=== PATIENT | male | born 1930 | race Hispanic/Latino ===

== ENCOUNTER 2017-10-28 20:45 | Observation (INO) | payer MEDICARE, OTHER ==
[2017-10-28 21:12] LABS: #Basophils 0.1 thou/uL (0.0-0.2); #Eosinphils 0.2 thou/uL (0.0-0.7); #Lymphocytes 2.9 thou/uL (1.20-3.40); #Neutrophils 4.5 thou/uL (1.40-6.50); %Basophils 0.7 % (0.0-1.0); %Eosinophils 2.4 % (0.0-10.0); %Monocytes 11.7 % (0.0-10.0); %Neutrophils 52.2 % (42.0-75.0); Hemoglobin 13.5 g/dL (14.0-18.0); Mean Corpuscular HGB CONC 33.8 g/dL (32.0-36.0); Mean Corpuscular Hemoglobin 33.1 pg (27.0-31.0); Mean Corpuscular Volume 98.1 fl (80.0-94.0); Mean Platelet Volume 9.2 fL (7.4-10.4); Platelet Count 198 thou/uL (130-400); RBC Distribution Width 11.1 % (11.5-14.5); Red Blood Cell (RBC) Count 4.09 mill/uL (4.70-6.10); White Blood Cell (WBC) Count 8.7 thou/uL (4.8-10.8)
[2017-10-28 21:39] LABS: ALT (SGPT) 16 U/L (8-55); AST (SGOT) 16 U/L (5-34); Albumin 4.2 g/dL (3.4-4.8); Alkaline Phosphatase 119 U/L (40-150); Anion Gap 13 mmol/L (10-20); BUN (Urea Nitrogen) 24 mg/dL (8.4-25.7); Bilirubin, Total 0.2 mg/dL (0.2-1.2); Calc. Creatinine Clearance 0 mL/min (70-130); Calcium 9.8 mg/dL (7.8-10.44); Carbon Dioxide 26 mmol/L (23-31); Chloride 102 mmol/L (98-107); Estimated GFR-MDRD 60; Globulin 3.7 g/dL (2.4-3.5); Glucose 188 mg/dL (83-110); Potassium 4.2 mmol/L (3.5-5.1); Protein, Total 7.9 g/dL (5.8-8.1); Sodium 137 mmol/L (136-145)
[2017-10-28 21:43] LABS: CKMB 1.5 ng/mL (0-6.6); Troponin I Less than 0.010 ng/mL (< 0.028)
--- NOTE | 2017-10-28 21:43 | RAD ---
CHEST TWO VIEWS: 10/28/17 HISTORY: Chest pain. COMPARISON: 07/21/17 study. Heart size is upper limits of normal. Postop sternotomy change. The lungs are clear of any infiltrati ve process. IMPRESSION: Stable chest. No active intrathoracic disease. POS: [facility]
[2017-10-29 01:03] LABS: Troponin I Less than 0.010 ng/mL (< 0.028)
[2017-10-29] MEDS ORDERED: Ondansetron ODT 4 MG TAB SL PRN (01:34)
[2017-10-29] MEDS ORDERED: Acetaminophen 325 MG TAB PO PRN ×2 (01:34→07:23)
[2017-10-29] MEDS ORDERED: Ondansetron HCl/PF 4 MG/2 ML Vial IVP PRN (01:34)
[2017-10-29 01:51] VITALS: BMI 25.7
[2017-10-29 05:10] LABS: Troponin I Less than 0.010 ng/mL (< 0.028)
[2017-10-29] MEDS ORDERED: Dextrose 50% Abboject 50 ML SYRINGE SLOW IVP PRN ×2 (07:23→07:24)
[2017-10-29] MEDS ORDERED: Nitroglycerin 0.4 MG TAB (25 Tab Bottle) PO PRN (07:23)
[2017-10-29] MEDS ORDERED: Ondansetron ODT 4 MG TAB PO PRN (07:23)
[2017-10-29] MEDS ORDERED: Dextrose 5% in Water 1,000 ML IV PRN ×2 (07:23→07:24)
[2017-10-29] MEDS ORDERED: HumaLOG 300 UNITS/3 ML VIAL SC PRN (07:24)
--- NOTE | 2017-10-29 07:52 | HP ---
PRIMARY CARE PROVIDER: Listed as Dr. Sam Nash. He cannot remember the name of the doctor, bu james that is what is listed. Referred to [facility] Service by [facility]. HISTORY OF PRESENT ILLNESS: The patient states his blood pressure got high about 159. He felt a pre ssure in his chest, lasted about 2 hours, no radiation, no associated symptoms of sweats, shortness o f breath or nausea. He presented to the emergency room and was admitted. PAST MEDICAL HISTORY: Coronary artery disease, diabetes mellitus type 2, hypertension. PAST SURGICAL HISTORY: Coronary artery bypass graft about 4 years ago, cholecystectomy. ALLERGIES: ACETAMINOPHEN, AMOXICILLIN, HYDROCODONE, NAPROXEN. SOCIAL HISTORY: No tobacco or alcohol. CODE STATUS: FULL CODE status. at bedside, next of kin and surrogate decision maker. 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 FAMILY HISTORY: No coronary artery disease, diabetes or hypertension. CURRENT MEDICATIONS: Metformin 500 mg a day, lisinopril 5 mg a day, Lipitor 10 mg a day, aspirin 325 mg a day. REVIEW OF SYSTEMS: General: No headaches, dizziness or fainting. Eyes: No double vision, blurred vision, flashing lights. ENT: No ear pain or drainage. No nasal bleeding. No trouble swallowing. Cardiac: No orthopnea or paroxysmal nocturnal dyspnea. Respirations: No cough, wheezing or asthma . Gastrointestinal: No nausea, vomiting, diarrhea, constipation, abdominal pain, or melena. Genito urinary: No hematuria, dysuria. Musculoskeletal: No pain or swelling in his arms or legs. Neurolo gic: No strokes, seizures or focal weakness. Psychiatric: No anxiety, depression. Skin: No bruis es, bleeding or rash. Heme/Lymph: No tender or swollen lymph nodes under his arms, neck or his groi n. No petechial hemorrhages have been noted. No bleeding gums. PHYSICAL EXAMINATION: GENERAL: He is an alert, pleasant, cooperative gentleman. VITAL SIGNS: Blood pressure 143/72-179/88, pulse 65-80, respirations 14-16, afebrile, O2 sat 95-98 o n room air. HEENT: Reveal pupils equal, round, and reactive to light. Extraocular movements are intact. Sclera e white. Tympanic membranes clear. Nose is clear. Oral mucous membranes are wet. Dental hygiene i s good. NECK: Supple, without jugular venous distention, adenopathy or thyromegaly. CHEST: Clear to auscultation and percussion. HEART: Regular rate and rhythm. First and second heart sounds clear. No murmurs, no gallops. ABDOMEN: Soft, bowel sounds are normal. No hepatosplenomegaly, no mass, no rebound, no bruits. EXTREMITIES: Reveal no cyanosis, clubbing or edema. PULSES: Carotid, radial, femoral, and dorsalis pedis pulses, brisk symmetric. SKIN: Warm and dry without bruises or rash. HEME/LYMPH: No tender or swollen lymph nodes in axilla, inguinal or cervical area. No petechial caroline h. NEUROLOGICAL: Cranial nerves II through XII are intact. Moves all extremities. Sensation is intact . LABORATORY DATA AND X-RAY FINDINGS: Comp metabolic profile normal. Cardiac enzymes normal x3. Bloo d sugar 188, 114. CBC: Hemoglobin 13.5, white count 8.7, platelet count 198,000. Chest x-ray revie wed by me, no cardiomegaly, CHF or infiltrate, post-sternotomy changes. EKG: Regular sinus rhythm, right bundle branch block, reviewed by me. ADMITTING PROBLEMS: 1. Chest pain, tightness sensation consistent with angina. 2. Coronary artery disease, post coronary artery bypass graft. 3. Hypertension. 4. Diabetes mellitus type 2 on oral hypoglycemic medicines. PLAN: 1. Hold metformin. 2. Exercise Cardiolite stress test. 3. Monitor blood pressure and Accu-Cheks. 4. Reevaluate when stress test, etc. is available.
[2017-10-29] MEDS ORDERED: Aspirin 325 MG TAB PO SCH (09:00)
[2017-10-29] MEDS ORDERED: Atorvastatin Calcium 10 MG TAB PO SCH (09:00)
[2017-10-29] MEDS ORDERED: Lisinopril 5 MG TAB PO SCH (09:00)
[2017-10-29] MEDS ORDERED: Aspirin 325 mg Enteric Coated Tablet PO SCH (09:00)
[2017-10-29 15:44] VITALS: BP 142/75; TEMP 97.8
--- NOTE | 2017-10-29 15:48 | NM ---
CARDIAC SPECT: HISTORY: An 87-year-old male with chest pain. Hypertension. Coronary artery disease. Diabetes. CABG. TECHNIQUE: A myocardial perfusion scan was performed using the single isotope one-day protocol with technetium 9 9m sestamibi, and 9 millicuries was injected intravenously for the rest exam, followed by 30 millicur ies for the stress study. Exercise stress was monitored and interpreted by Dr. Mandujano. FINDINGS: Homogeneous tracer distribution is seen in the myocardial segments on stress and rest images without fixed or reversible defects. GATED SPECT LVEF: 70% WALL MOTION EXAM: Normal. IMPRESSION: Normal myocardial perfusion scan. POS: [facility]
--- NOTE | 2017-10-29 17:29 | DIS ---
DATE OF ADMISSION: 10/29/2017 DATE OF DISCHARGE: 10/29/2017 DISCHARGE DISPOSITION: Discharged home. PRIMARY CARE PROVIDER: Sam Nash D.O. FINAL DIAGNOSES: Chest pain, noncardiac; coronary artery disease; hypertension, diabetes mellitus ty pe 2. DISCHARGE MEDICATIONS: Metformin 500 mg a day, lisinopril 5 mg a day, Lipitor 10 mg a day, aspirin 3 25 mg a day. ALLERGIES: AMOXICILLIN, HYDROCODONE, NAPROSYN. CODE STATUS: FULL. PENDING AT THE TIME OF DISCHARGE: Nothing. HOSPITAL COURSE: The patient admitted to the hospital through [place] [facility] statin g his blood pressure got high, he felt some tightness in his chest. His chest x-ray was unrevealing for pneumonia, CHF, etc. EKG was unrevealing for acute abnormality. White count 8.7, hemoglobin 13. 5, platelet count 198,000. Cardiac enzymes normal x3. Comp metabolic profile normal except for bloo d sugar of 188. The patient underwent an exercise Cardiolite stress test which is normal. The patie nt currently feels well. The cardiorespiratory exam is normal. Vital signs were controlled, blood p ressure 142/75, pulse 79, respirations 16, O2 sat 96 on room air. The situation has been discussed w ith him. He is being discharged to follow up with Dr. Nash in 7 days. CONSULTATIONS: None. PROCEDURES: None.
--- NOTE | 2017-10-31 13:27 | EKG ---
Test Reason : CHEST PAIN Blood Pressure : / mmHG Vent. Rate : 074 BPM Atrial Rate : 074 BPM P-R Int : 162 ms QRS Dur : 138 ms QT Int : 408 ms P-R-T Axes : 034 -24 024 degrees QTc Int : 452 ms Normal sinus rhythm Right bundle branch block Abnormal ECG Confirmed by AMY CHEEMA ([id number]), editor newspaper JURGEN BEAVER ([id number]) on 10/31/2017 1:27:30 PM Referred By: Confirmed By:AMY CHEEMA
== END 2017-10-29 17:10 | disposition home or self-care (01) ==
LOC: ERS 20:45 → 2SW 10-29 00:15
PROVIDERS: ADMIT Family Medicine; ATTEND Family Medicine
DX: R07.89 Other chest pain (principal); I25.10 Atherosclerotic heart disease of native coronary artery without angina pectoris; I10 Essential (primary) hypertension; E11.9 Type 2 diabetes mellitus without complications; Z88.1 Allergy status to other antibiotic agents; Z88.6 Allergy status to analgesic agent; Z88.5 Allergy status to narcotic agent; Z88.8 Allergy status to other drugs, medicaments and biological substances; Z79.82 Long term (current) use of aspirin; Z79.84 Long term (current) use of oral hypoglycemic drugs; Z79.899 Other long term (current) drug therapy; Z95.1 Presence of aortocoronary bypass graft
CPT/HCPCS: 71020; 78452; 80053; 82553; 82962; 84484 ×3; 85025; 93005; 93017; 99285; A9500; G0378; 36415; 36416

== ENCOUNTER 2018-02-05 12:13 | Emergency (ER) | payer MEDICARE, OTHER ==
[2018-02-05 12:35] LABS: #Eosinphils 0.2 thou/uL (0.0-0.7); #Lymphocytes 2.3 thou/uL (1.20-3.40); #Monocytes 0.9 thou/uL (0.11-0.59); %Basophils 0.1 % (0.0-1.0); %Eosinophils 1.9 % (0.0-10.0); %Lymphocytes 22.1 % (21.0-51.0); %Monocytes 8.7 % (0.0-10.0); %Neutrophils 67.2 % (42.0-75.0); Hemoglobin 12.4 g/dL (14.0-18.0); Mean Corpuscular HGB CONC 34.6 g/dL (32.0-36.0); Mean Corpuscular Volume 95.5 fl (80.0-94.0); Mean Platelet Volume 8.7 fL (7.4-10.4); Platelet Count 187 thou/uL (130-400); RBC Distribution Width 11.3 % (11.5-14.5); Red Blood Cell (RBC) Count 3.75 mill/uL (4.70-6.10); White Blood Cell (WBC) Count 10.4 thou/uL (4.8-10.8)
[2018-02-05 12:56] LABS: ALT (SGPT) 14 U/L (8-55); AST (SGOT) 13 U/L (5-34); Albumin 3.9 g/dL (3.4-4.8); Alkaline Phosphatase 122 U/L (40-150); Anion Gap 14 mmol/L (10-20); BUN (Urea Nitrogen) 20 mg/dL (8.4-25.7); Bilirubin, Total 0.4 mg/dL (0.2-1.2); CK (CPK) 74 U/L (30-200); Calc. Creatinine Clearance 0 mL/min (70-130); Calcium 9.4 mg/dL (7.8-10.44); Carbon Dioxide 24 mmol/L (23-31); Chloride 104 mmol/L (98-107); Estimated GFR-MDRD 71; Globulin 2.8 g/dL (2.4-3.5); Glucose 182 mg/dL (83-110); Potassium 4.6 mmol/L (3.5-5.1); Protein, Total 6.7 g/dL (5.8-8.1); Sodium 137 mmol/L (136-145)
[2018-02-05 13:00] LABS: CKMB 1.5 ng/mL (0-6.6); Troponin I Less than 0.010 ng/mL (< 0.028)
--- NOTE | 2018-02-05 13:03 | RAD ---
CHEST PA AND LATERAL: Date: 02/05/18 HISTORY: 87-year-old male with history of chest pain, primarily left-sided. COMPARISON: 10/28/17. FINDINGS: Postop midline sternotomy. Mild stable chronic linear and interstitial changes. No confluent pneumoni a, overt edema, or pleural effusion. IMPRESSION: Stable minimal bilateral chronic changes. No acute intrathoracic disease. POS: [facility]
== END 2018-02-05 13:55 | disposition home or self-care (01) ==
LOC: ERS 12:13
DX: S29.011A Strain of muscle and tendon of front wall of thorax, initial encounter (principal); I10 Essential (primary) hypertension; I25.10 Atherosclerotic heart disease of native coronary artery without angina pectoris; E11.9 Type 2 diabetes mellitus without complications; Z87.891 Personal history of nicotine dependence; Z79.899 Other long term (current) drug therapy; Z79.84 Long term (current) use of oral hypoglycemic drugs; Z79.82 Long term (current) use of aspirin; X50.0XXA Overexertion from strenuous movement or load, initial encounter
CPT/HCPCS: 36415; 71046; 80053; 82553; 84484; 85025; 93005; 94760

== ENCOUNTER 2018-03-05 07:03 | Emergency (ER) | payer MEDICARE, OTHER ==
[2018-03-05] MEDS ORDERED: Dexamethasone 10 MG/ML VIAL ONE (07:44)
--- NOTE | 2018-03-05 08:43 | RAD ---
PA AND LATERAL VIEWS CHEST: HISTORY: Cough. COMPARISON: Comparison is made with the exam of 02/05/18. FINDINGS: Postop changes of median sternotomy are again seen. The heart size is normal. Chronic changes are r edemonstrated in the lung perez. No lobar consolidation, pneumothoraces, or pleural effusions are i dentified. There are degenerative changes in the spine. IMPRESSION: No acute process. POS: [facility]
== END 2018-03-05 08:38 | disposition home or self-care (01) ==
LOC: ERS 07:03
DX: J06.9 Acute upper respiratory infection, unspecified (principal); I10 Essential (primary) hypertension; E11.9 Type 2 diabetes mellitus without complications; I25.10 Atherosclerotic heart disease of native coronary artery without angina pectoris; E78.00 Pure hypercholesterolemia, unspecified; Z87.891 Personal history of nicotine dependence; Z79.82 Long term (current) use of aspirin; Z79.84 Long term (current) use of oral hypoglycemic drugs; Z79.899 Other long term (current) drug therapy
CPT/HCPCS: 71046; 87804; 96372; J1100

== ENCOUNTER 2018-03-14 14:23 | Emergency (ER) | payer MEDICARE, OTHER ==
[2018-03-14] MEDS ORDERED: methylPREDNISolone Sod Succ/PF 125 MG/2 ML VIAL ONE (15:16)
--- NOTE | 2018-03-14 16:36 | RAD ---
PA AND LATERAL CHEST: Date: 03/14/18 HISTORY: Cough and congestion for several weeks. COMPARISON: 03/05/18. FINDINGS: Postsurgical changes related to CABG are again noted. The cardiac silhouette is at the upper limits o f normal but stable in size. Pulmonary vasculature is within normal limits. Mild linear densities are again seen at each lung base, probably related to superimposition of structures and vasculature. Deisy gs are otherwise clear. Degenerative changes seen in the spine. Surgical clips overlie the right uppe r quadrant. IMPRESSION: No acute cardiopulmonary process. POS: [facility]
== END 2018-03-14 15:51 | disposition home or self-care (01) ==
LOC: ERS 14:23
DX: J40 Bronchitis, not specified as acute or chronic (principal); E11.9 Type 2 diabetes mellitus without complications; I10 Essential (primary) hypertension; I25.10 Atherosclerotic heart disease of native coronary artery without angina pectoris; Z87.891 Personal history of nicotine dependence
CPT/HCPCS: 71046; 96372; J2930

== ENCOUNTER 2018-03-21 11:21 | Emergency (ER) | payer MEDICARE, OTHER ==
[2018-03-21 12:21] LABS: #Basophils 0.1 thou/uL (0.0-0.2); #Eosinphils 0.3 thou/uL (0.0-0.7); #Lymphocytes 3.2 thou/uL (1.20-3.40); #Monocytes 0.9 thou/uL (0.11-0.59); #Neutrophils 7.7 thou/uL (1.40-6.50); %Basophils 0.8 % (0.0-1.0); %Eosinophils 2.3 % (0.0-10.0); %Lymphocytes 26.1 % (21.0-51.0); %Monocytes 7.6 % (0.0-10.0); %Neutrophils 63.3 % (42.0-75.0); Hemoglobin 13.3 g/dL (14.0-18.0); Mean Corpuscular HGB CONC 34.6 g/dL (32.0-36.0); Mean Corpuscular Volume 95.5 fl (80.0-94.0); Mean Platelet Volume 8.4 fL (7.4-10.4); Platelet Count 254 thou/uL (130-400); RBC Distribution Width 11.3 % (11.5-14.5); Red Blood Cell (RBC) Count 4.03 mill/uL (4.70-6.10); White Blood Cell (WBC) Count 12.2 thou/uL (4.8-10.8)
[2018-03-21 12:40] LABS: ALT (SGPT) 15 U/L (8-55); AST (SGOT) 12 U/L (5-34); Albumin 3.7 g/dL (3.4-4.8); Alkaline Phosphatase 85 U/L (40-150); Anion Gap 9 mmol/L (10-20); BUN (Urea Nitrogen) 34 mg/dL (8.4-25.7); Bilirubin, Total 0.6 mg/dL (0.2-1.2); CK (CPK) 35 U/L (30-200); Calc. Creatinine Clearance 0 mL/min (70-130); Calcium 9.5 mg/dL (7.8-10.44); Carbon Dioxide 26 mmol/L (23-31); Chloride 103 mmol/L (98-107); Estimated GFR-MDRD 67; Globulin 2.9 g/dL (2.4-3.5); Glucose 215 mg/dL (83-110); Potassium 4.4 mmol/L (3.5-5.1); Protein, Total 6.6 g/dL (5.8-8.1); Sodium 134 mmol/L (136-145)
[2018-03-21 12:45] LABS: CKMB 1.1 ng/mL (0-6.6); Troponin I Less than 0.010 ng/mL (< 0.028)
--- NOTE | 2018-03-21 13:10 | RAD ---
PORTABLE CHEST: Date: 03/21/18 HISTORY: Shortness of breath. COMPARISON: 01/13/16 study. FINDINGS: Heart size is within normal limits. There are postop sternotomy changes. Lungs are clear of infiltrat es. Mild chronic changes are seen. No focal infiltrates. IMPRESSION: No active intrathoracic disease. POS: [facility]
== END 2018-03-21 13:30 | disposition home or self-care (01) ==
LOC: ERS 11:21
DX: J06.9 Acute upper respiratory infection, unspecified (principal); E78.5 Hyperlipidemia, unspecified; I10 Essential (primary) hypertension; I25.10 Atherosclerotic heart disease of native coronary artery without angina pectoris; E11.9 Type 2 diabetes mellitus without complications; Z87.891 Personal history of nicotine dependence; Z79.82 Long term (current) use of aspirin; Z79.899 Other long term (current) drug therapy; Z79.84 Long term (current) use of oral hypoglycemic drugs
CPT/HCPCS: 36415; 71045; 80053; 82553; 84484; 85025; 93005

== ENCOUNTER 2018-11-28 08:49 | Emergency (ER) | payer MEDICARE, OTHER ==
--- NOTE | 2018-11-28 11:34 | RAD ---
RADIOGRAPH CHEST 2 VIEWS: HISTORY: An 88-year-old male with cough for 3 days. FINDINGS: There is no air space density, pulmonary edema, pleural effusion, pneumothorax, or cardiomegaly. IMPRESSION: No acute cardiopulmonary findings. jn [] POS: [facility]
== END 2018-11-28 11:21 | disposition home or self-care (01) ==
LOC: ERS 08:49
DX: R05 Cough (principal); I10 Essential (primary) hypertension; I25.10 Atherosclerotic heart disease of native coronary artery without angina pectoris; E11.9 Type 2 diabetes mellitus without complications; Z87.891 Personal history of nicotine dependence; Z79.899 Other long term (current) drug therapy; Z79.82 Long term (current) use of aspirin; Z79.84 Long term (current) use of oral hypoglycemic drugs
CPT/HCPCS: 71046

== ENCOUNTER 2019-04-29 19:51 | Observation (INO) | payer MEDICARE, OTHER ==
[2019-04-29 21:32] LABS: #Basophils 0.1 thou/uL (0.0-0.2); #Eosinphils 0.1 thou/uL (0.0-0.7); #Lymphocytes 2.4 thou/uL (1.20-3.40); #Monocytes 1.6 thou/uL (0.11-0.59); #Neutrophils 9.4 thou/uL (1.40-6.50); %Basophils 0.4 % (0.0-1.0); %Eosinophils 0.7 % (0.0-10.0); %Lymphocytes 17.5 % (21.0-51.0); %Neutrophils 69.4 % (42.0-75.0); Hemoglobin 13.2 g/dL (14.0-18.0); Mean Corpuscular HGB CONC 33.6 g/dL (32.0-36.0); Mean Corpuscular Volume 95.4 fL (78.0-98.0); Mean Platelet Volume 9.2 fL (7.4-10.4); Platelet Count 212 thou/uL (130-400); RBC Distribution Width 11.4 % (11.5-14.5); Red Blood Cell (RBC) Count 4.13 mill/uL (4.70-6.10); White Blood Cell (WBC) Count 13.5 thou/uL (4.8-10.8)
[2019-04-29 21:51] LABS: ALT (SGPT) 19 U/L (8-55); AST (SGOT) 14 U/L (5-34); Albumin 4.7 g/dL (3.4-4.8); Alkaline Phosphatase 86 U/L (40-150); Anion Gap 18 mmol/L (10-20); BUN (Urea Nitrogen) 47 mg/dL (8.4-25.7); Bilirubin, Total 0.5 mg/dL (0.2-1.2); CK (CPK) 149 U/L (30-200); Calc. Creatinine Clearance 0 mL/min (70-130); Calcium 10.7 mg/dL (7.8-10.44); Carbon Dioxide 21 mmol/L (23-31); Chloride 102 mmol/L (98-107); Estimated GFR-MDRD 25; Globulin 3.4 g/dL (2.4-3.5); Glucose 146 mg/dL (83-110); Potassium 4.6 mmol/L (3.5-5.1); Protein, Total 8.1 g/dL (5.8-8.1); Sodium 136 mmol/L (136-145)
[2019-04-30] MEDS ORDERED: Lactated Ringer's 1,000 ML IV SCH (02:03)
[2019-04-30 02:26] VITALS: BMI 24.8
[2019-04-30 02:51] LABS: Lactic Acid 1.3 mmol/L (0.5-2.2)
[2019-04-30 03:02] LABS: Anion Gap 14 mmol/L (10-20); BUN (Urea Nitrogen) 41 mg/dL (8.4-25.7); Calc. Creatinine Clearance 28 mL/min (70-130); Calcium 9.6 mg/dL (7.8-10.44); Carbon Dioxide 21 mmol/L (23-31); Chloride 106 mmol/L (98-107); Estimated GFR-MDRD 37; Glucose 117 mg/dL (83-110); Potassium 4.2 mmol/L (3.5-5.1); Sodium 137 mmol/L (136-145)
[2019-04-30 06:03] LABS: Bilirubin Negative (Negative); Blood, Urine Negative (Negative); Clarity CLEAR (Clear); Glucose, Urine (Dipstick) Negative (Negative); Leukocyte Negative (Negative); Nitrite Negative (Negative); Protein, Urine (Dipstick) Negative (Neg-Trace); Urobilinogen 0.2 mg/dL (0.2-1.0)
[2019-04-30 06:06] LABS: Bacteria/HPF None Seen HPF (None Seen); Hyaline Casts/LPF 4-6 HYALINE CAST LPF (0-3 Hyaline); Pathc Cast-AUWi Flag 1.08 (0-2.49); RBC/HPF 0-3 HPF (0-3); Squamous Epithelial None Seen HPF (0-3); WBC/HPF None Seen HPF (0-3)
[2019-04-30 06:08] LABS: Urine Culture Reflex No No
[2019-04-30 07:50] VITALS: BP 114/69; TEMP 97.6
--- NOTE | 2019-05-01 04:21 | SS ---
DATE OF ADMISSION: 04/30/2019 DATE OF DISCHARGE: 04/30/2019 CHIEF COMPLAINT: Leg cramps. HISTORY OF PRESENT ILLNESS: This patient is an 88-year-old male who is in very good overall condition, who has been out working in the heat, doing some type of construction, also doing a fair amount of yard work. He admits that he is very bad about not drinking enough water. He subsequently started developing significant muscle cramps in his legs and that is what prompted him to present to the emergency department. He denied any numbness, weakness, tingling, or chest pains. REVIEW OF SYSTEMS: All other systems were reviewed and all pertinent positives and negatives noted in history of present illness. PAST MEDICAL HISTORY: Notable for hypertension, coronary artery disease, diabetes. PAST SURGICAL HISTORY: Bypass and cholecystectomy. SOCIAL HISTORY: The patient is a nondrinker, nondrug user. Quit smoking cigarettes more than 10 years ago. FAMILY HISTORY: No coronary artery disease, diabetes, or hypertension. ALLERGIES: AMOXICILLIN, HYDROCODONE, NAPROXEN. HOME MEDICATIONS: 1. Atorvastatin 10 mg daily. 2. Aspirin 325 daily. 3. Metformin 500 mg daily. 4. Lisinopril 5 mg daily. PHYSICAL EXAMINATION: VITAL SIGNS: Temperature 97.6, pulse 63, respirations 16 to 18, O2 saturation 95% on room air, BP 114/69 up to 150/78. GENERAL APPEARANCE: A very healthy-appearing 88-year-old, age-appropriate male. He is in no distress. He is awake, alert, oriented, pleasant, cooperative. HEENT: PERRL. No OP lesions. Moist oral mucosa. NECK: Supple and symmetric. HEART: Regular rate and rhythm without murmurs. LUNGS: Clear bilaterally. ABDOMEN: Soft, nontender, and nondistended. Positive bowel sounds. EXTREMITIES: No cyanosis, clubbing, or edema. No myalgias. LABORATORY DATA: Initial labs: White count 13.5, hemoglobin 13.2, platelets 212. Sodium 136, potassium 4.6, chloride 102, CO2 is 21, BUN 47, creatinine 2.49, glucose 146. Calcium 10.7. LFTs normal. Urinalysis is negative. Repeat labs at 0200 hours, BUN is 47, creatinine 1.74, glucose 117. DIAGNOSES: 1. Dehydration. 2. Acute renal injury secondary to dehydration. 3. Diabetes mellitus. 4. History of hypertension. 5. History of coronary artery disease. HOSPITAL COURSE: The patient has received significant hydration. His renal indices are improving. He is voiding fair amount of pale urine at this time. He says he feels completely normal. 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 We discussed his renal situation. His numbers were improving significantly with hydration. I believe he is able to adequately hydrate orally and we would not be doing any differently if we were to keep him here and therefore, I think it is okay to discharge him home. He will continue to push his fluids. He will continue with his usual home medications, although I will have him hold his metformin this morning and have him resume this evening just in light of his renal insufficiency. DISCHARGE INSTRUCTIONS: He is to have his usual diabetic diet. His activity level is ad cecil, although he is to avoid excess heat and excess exertion. He is to follow up with his PCP, Dede Mendez on Thursday or Thursday to have repeat labs to ensure normalization of his indices. The patient can return to the hospital should he have any problems prior to that time. Job ID: [id number]
== END 2019-04-30 10:44 | disposition home or self-care (01) ==
LOC: ERS 19:51 → T4-B 04-30 02:04
PROVIDERS: ADMIT Internal Medicine; ATTEND Internal Medicine
DX: E86.0 Dehydration (principal); N17.9 Acute kidney failure, unspecified; E11.9 Type 2 diabetes mellitus without complications; I10 Essential (primary) hypertension; I25.10 Atherosclerotic heart disease of native coronary artery without angina pectoris; E78.5 Hyperlipidemia, unspecified; Z87.891 Personal history of nicotine dependence; Z95.1 Presence of aortocoronary bypass graft; Z88.0 Allergy status to penicillin; Z88.6 Allergy status to analgesic agent; Z88.5 Allergy status to narcotic agent; Z79.82 Long term (current) use of aspirin; Z79.84 Long term (current) use of oral hypoglycemic drugs; Z79.899 Other long term (current) drug therapy
CPT/HCPCS: 80048; 80053; 81001; 82550; 83605; 83735; 85025; 96360; 96361 ×2; 99284; G0378 ×2; 36415